=== PATIENT | female | born 1985 | race Caucasian/White ===

== ENCOUNTER 2024-11-02 12:33 | Emergency (ER) | payer OTHER, SELFPAY ==
[2024-11-02 13:00] VITALS: BP 127/54; PULSE 111; RESP 18; TEMP 36.9; O2SAT 100; BMI 17.7
== END 2024-11-02 15:55 | disposition left against medical advice (07) ==
PROVIDERS: Emergency Provider Emergency Medicine
DX: R11.2 Nausea with vomiting, unspecified (principal)
CPT/HCPCS: 99281